=== PATIENT | male | born 1990 | race Caucasian/White ===

== ENCOUNTER 2017-08-19 12:25 | Inpatient (IN) | payer MEDICAID ==
[2017-08-19 12:29] VITALS: BMI 25.1
--- NOTE | 2017-08-19 13:02 | ED PDOC ---
HPI: Psych/Substance Abuse Time Seen by Provider: 08/19/17 12:29 Chief Complaint (Nursing): Psychiatric Evaluation Chief Complaint (Provider): Psychiatric evaluation History Per: Patient History/Exam Limitations: no limitations Onset/Duration Of Symptoms: Persistent Current Symptoms Are (Timing): Still Present Modifying Factor(s): Alcohol, Cocaine Associated Symptoms: Anxiety, Depression. denies: Suicidal Thoughts, Suicidal Plan Additional History Per: Patient Additional Complaint(s): 26yo male with no medical history, brought to ER by EMS for evaluation of feeling anxious, depressed and states he is "losing my mind." Patient states he has always felt this way and brittni with his symptoms on his own; he reports he has not gotten a formal diagnosis of mental illness. He also states 1 month ago , his girlfriend at that time had an without his knowledge; since then he has been unable to deal with his feelings. Patient denies any suicidal or homicidal ideation but the patient states he has been reckless with his behavior because he does not care what happens to him. He denies any visual or auditory hallucinations as well and denies any current suicidal plan. Patient does admit to cocaine and alcohol use today. He also reports a global headache, rated as 8/10 and is associated with photophobia. He denies any nausea, vomiting , abdominal pain, chest pain, shortness of breath, cough, weakness or numbness. He has no other medical complaints. PMD: None Past Medical History Reviewed: Historical Data, Nursing Documentation, Vital Signs Vital Signs: Last Vital Signs Temp 98.4 F 08/19/17 12:45 Pulse 113 H 08/19/17 12:45 Resp 18 08/19/17 12:45 BP 152/89 H 08/19/17 12:45 Pulse Ox 100 08/19/17 12:45 - Medical History PMH: No Chronic Diseases - Surgical History Other surgeries: right hand fracture repair - Family History Family History: States: Other Other Family History: Schizophrenia, bipolar disorder - Social History Current smoker - smoking cessation education provided: Yes (patient not willing to quantify amount of cigarettes) Alcohol: Occasional Drugs: Cocaine - Home Medications Home Medications: Ambulatory Orders Medication Instructions Recorded No Known Home Med 08/19/17 - Allergies Allergies/Adverse Reactions: Allergies Allergy/AdvReac Type Severity Reaction Status Date / Time No Known Allergies Allergy Verified 08/19/17 12:32 Review of Systems ROS Statement: Except As Marked, All Systems Reviewed And Found Negative Cardiovascular: Negative for: Chest Pain Respiratory: Negative for: Cough, Shortness of Breath Gastrointestinal: Negative for: Nausea, Vomiting, Abdominal Pain Neurological: Positive for: Headache. Negative for: Weakness, Numbness Psych: Positive for: Anxiety, Depression. Negative for: Suicidal ideation Physical Exam - Reviewed Nursing Documentation Reviewed: Yes Vital Signs Reviewed: Yes - Physical Exam Comments: GENERAL APPEARANCE: Patient is awake, alert, oriented x 3, in no acute distress. Cooperative. SKIN: Warm, dry; (-) cyanosis. HEAD: (-) swelling and tenderness, with no palpable bony defect. EYES: (-) conjunctival pallor, (-) scleral icterus, (-) nystagmus. ENMT: Mucous membranes moist. Pharynx clear. Airway patent: (-) stridor. Full ROM of mandible without pain. NECK: Supple, FROM (-)tenderness, (-) vertebral tenderness CHEST AND RESPIRATORY: (-) rales, (-) rhonchi, (-) wheezes; breath sounds equal bilaterally. HEART AND CARDIOVASCULAR: (-) irregularity; (-) murmur, (-) gallop. ABDOMEN AND GI: Soft; (-) tenderness (-) guarding (-) distention. BACK: (-) tenderness. EXTREMITIES: (-) deformity NEURO AND PSYCH: Mental status as above. hse specialist: Pupils equal & reactive . EOMI. (- ) facial asymmetry. Tongue and uvula midline. Strength 5/5 in all extremities. No gross sensory deficits. Affect: flat. - Laboratory Results Result Diagrams: 08/19/17 16:05 08/19/17 16:05 - ECG ECG: Positive for: Interpreted By Me, Viewed By Me ECG Rhythm: Positive for: Sinus Tachycardia. Negative for: ST/T Changes Interpretation Of ECG: QTC 438 Rate: 106 O2 Sat by Pulse Oximetry: 100 (RA) Pulse Ox Interpretation: Normal Medical Decision Making Medical Decision Making: Impression: Psychiatric evaluation, concern for depression Plan: -- EKG -- Tylenol 650mg PO -- UDS -- Alcohol serum -- Crisis evaluation -- 1:1 observation Time: 1500 Upon re-evaluation, patient states he still has a headache. Motrin 600mg PO ordered. Patient also requesting food tray at this time. Patient also reports he has been recreationally taking Percocet for the last 4- 6 weeks. Repeat HR is 96. Time: 1518 Accucheck level is 90. Utox reviewed. Patient seen and evaluated by crisis team, and per Dr. Eden patient to be admitted for depression. CBC, CMP and Urinalysis ordered. Time: 1635 Labs reviewed. Repeat HR: 88 Repeat BP: 134/86 On exam, patient remains AAOx3, in no acute distress. Headache improved. Patient continues to deny chest pain or SOB. On exam, neck is supple, lungs CTA , cardiac RRR, abdomen is soft and non-tender, neuro exam shows no focal findings. Patient medically cleared for psychiatric admission. Arrangements made for admission. Scribe Attestation: Documented by Margo Curry acting as a scribe for BONNIE Ruvalcaba. Provider Attestation: All medical record entries made by the Scribe were at my direction and personally dictated by me. I have reviewed the chart and agree that the record accurately reflects my personal performance of the history, physical exam, medical decision making, and the department course for this patient. I have also personally directed, reviewed, and agree with the discharge instructions and disposition. Disposition - Clinical Impression Clinical Impression: Depression - Patient ED Disposition Is Patient to be Admitted: Yes Counseled Patient/Family Regarding: Diagnosis - Disposition Disposition Time: 16:44 Condition: FAIR - Pt Status Changed To: Hospital Disposition Of: Inpatient - Admit Certification Admit to Inpatient:: After my assessment, the patient will require hospitalization for at least two midnights. This is because of the severity of symptoms shown, intensity of services needed, and/or the medical risk in this patient being treated as an outpatient. Results - Lab Results Lab Results: 08/19/17 08/19/17 08/19/17 16:05 16:05 14:45 WBC 9.6 RBC 5.62 Hgb 14.2 Hct 44.9 MCV 79.9 L MCH 25.3 L MCHC 31.7 L RDW 14.3 Plt Count 222 MPV 9.4 Neut % (Auto) 80.9 H Lymph % (Auto) 12.7 L [place] % (Auto) 6.1 Eos % (Auto) 0.0 Baso % (Auto) 0.3 Neut # (Auto) 7.7 H Lymph # (Auto) 1.2 [place] # (Auto) 0.6 Eos # (Auto) 0.0 Baso # (Auto) 0.0 Sodium 140 Potassium 3.8 Chloride 100 Carbon Dioxide 26 Anion Gap 18 BUN 6 L Creatinine 0.6 L Est GFR ( Amer) > 60 Est GFR (Non-Af Amer) > 60 POC Glucose (mg/dL) Random Glucose 89 Calcium 9.5 Total Bilirubin 0.5 AST 34 ALT 39 Alkaline Phosphatase 67 Total Protein 7.4 Albumin 4.2 Globulin 3.2 Albumin/Globulin Ratio 1.3 Urine Opiates Screen Positive H Urine Methadone Screen Negative Ur Barbiturates Screen Negative Ur Phencyclidine Scrn Negative Ur Amphetamines Screen Negative U Benzodiazepines Scrn Negative U Oth Cocaine Metabols Positive H U Cannabinoids Screen Positive H Alcohol, Quantitative 08/19/17 08/19/17 14:36 13:20 WBC RBC Hgb Hct MCV MCH MCHC RDW Plt Count MPV Neut % (Auto) Lymph % (Auto) [place] % (Auto) Eos % (Auto) Baso % (Auto) Neut # (Auto) Lymph # (Auto) [place] # (Auto) Eos # (Auto) Baso # (Auto) Sodium Potassium Chloride Carbon Dioxide Anion Gap BUN Creatinine Est GFR ( Amer) Est GFR (Non-Af Amer) POC Glucose (mg/dL) 90 Random Glucose Calcium Total Bilirubin AST ALT Alkaline Phosphatase Total Protein Albumin Globulin Albumin/Globulin Ratio Urine Opiates Screen Urine Methadone Screen Ur Barbiturates Screen Ur Phencyclidine Scrn Ur Amphetamines Screen U Benzodiazepines Scrn U Oth Cocaine Metabols U Cannabinoids Screen Alcohol, Quantitative 54 H
[2017-08-19 15:17] LABS: BARBITURATES, UR NEGATIVE (NEGATIVE)
[2017-08-19 15:24] LABS: BENZODIAZEPINES, UR NEGATIVE (NEGATIVE); OPIATES, UR POSITIVE (NEGATIVE); PHENCYCLIDINE, UR NEGATIVE (NEGATIVE)
[2017-08-19 16:17] LABS: BASO % 0.3 % (0.0-2.0); HEMOGLOBIN 14.2 g/dL (12.0-18.0); LYMPH # 1.2 K/uL (1.0-4.3); LYMPH % 12.7 % (20.0-40.0); MEAN CELL VOLUME 79.9 fl (80.0-94.0); MEAN CORPUSCULAR HEMOGLOBIN 25.3 pg (27.0-31.0); MEAN CORPUSCULAR HGB CONC 31.7 g/dL (33.0-37.0); MEAN PLATELET VOLUME 9.4 fl (7.2-11.7); MONO # 0.6 K/uL (0.0-0.8); MONO % 6.1 % (0.0-10.0); NEUT # 7.7 K/uL (1.8-7.0); NEUT % 80.9 % (50.0-75.0); RBC 5.62 Mil/uL (4.40-5.90); RED CELL DISTRIBUTION WIDTH 14.3 % (11.5-14.5); WHITE BLOOD COUNT 9.6 K/uL (4.8-10.8)
[2017-08-19 16:25] LABS: ALB/GLOB RATIO 1.3 (1.0-2.1); ALBUMIN 4.2 g/dL (3.5-5.0); ALT/SGPT 39 U/L (21-72); AST/SGOT 34 U/L (17-59); BLOOD UREA NITROGEN 6 mg/dl (9-20); CALCIUM 9.5 mg/dL (8.4-10.2); GFR AFRICAN-AMERICAN > 60; GFR NON-AFRICAN AMERICAN > 60
[2017-08-19 16:33] LABS: URINE BACTERIA RARE (<OCC); URINE BILIRUBIN NEGATIVE (NEGATIVE); URINE BLOOD NEGATIVE (NEGATIVE); URINE CLARITY CLOUDY (Clear); URINE COLOR YELLOW (YELLOW); URINE GLUCOSE (UA) NEG (Normal); URINE LEUKOCYTE ESTERASE NEG Leu/uL (Negative); URINE PROTEIN 30 mg/dL (NEGATIVE); URINE UROBILINOGEN 0.2-1.0 mg/dL (0.2-1.0)
[2017-08-19] MEDS ORDERED: DiphenhydrAMINE 50 mg/ml Inj IM PRN (20:58)
[2017-08-19] MEDS ORDERED: Alum-Mag Hydrox-Simethicone Susp (30 mL) PO PRN (20:58)
[2017-08-19] MEDS ORDERED: Magnesium Hydroxide Susp 30 ml UD PO PRN (20:58)
--- NOTE | 2017-08-19 21:42 | PCM.BM ---
<Gumaro Gimenez P - Last Filed: 08/19/17 21:41> Treatment Plan Problems - Problems identified on initial assessmt Hopelessness/Helplessness Date Initiated: 08/19/17 Time Initiated: 21:42 Assessment reference: NA Status: Active Treatment assets and liabiliti Patient Assests: cooperative, ADL independent, physically healthy, negotiates basic needs, cognitively intact Patient Liabilities: financial problems, relationship conflicts, substance abuse - Milieu Protocol Maintain good personal hygiene: daily Encourage regular showers, daily Remind patient to perform daily oral care, daily Assist patient to perform ADL's Conduct patient checks and document Observation sheet: Q15 minutes Maintain personal safety: every shift Educate patient to report safety concerns to staff, every shift Monitor environment for contraband/sharps Medication safety: Monitor for expected outcome, potential side effects: every shift, Assess barriers to learning: every shift, Assess readiness for medication education: every shift <Juan R Seaman - Last Filed: 08/21/17 13:33> - Diagnosis (1) Depression Status: Acute Interventions: psychotherapy, pharmacotherapy 08/21/17 13:19
[2017-08-20] MEDS: Multivitamin With Minerals Tab PO SCH (08:36)
[2017-08-20 09:14] LABS: T4 6.5 ug/dl (5.5-11.0)
--- NOTE | 2017-08-20 12:22 | CARD ---
APPROVED REPORT EKG Measurement Heart [id number] <Conclusion> Sinus tachycardia Possible Left atrial enlargement Borderline ECG
--- NOTE | 2017-08-20 13:54 | PCM.PSYCH ---
Initial Psychiatric Evaluation - Initial Psychiatric Evaluation Type of Admission: Voluntary Legal Status: Capacity Chief Complaint (in patient's own words): I am depressed Patient's Reaction to Hospitalization: pt requested help History of Present Illness and Precipitating Events: pt with history of opiate , cocaine alcohol and cannabis use , denied hx of previous psychiatric treatment, reported feeling increasingly depressed for past month after his girlfriend had an , started using increasing amounts of opiates , alcohol and cocaine on day of evaluation experienced suicidal ideation, came to ER seeking help pt reported passive suicidal ideation without plan on unit, denied homicidal ideation , denied perceptual disturbances urine toxicology positive for cocaine cannabis and opiates Current Medications: Active Medications Generic Name Dose Route Start Last Admin Trade Name Freq PRN Reason Stop Dose Admin Acetaminophen 650 mg 08/19/17 20:58 Tylenol 325mg Tab PO Q4 PRN pain level 4-7 Al Hydrox/Mg Hydrox/Simethicone 30 ml 08/19/17 20:58 Maalox Plus 30 Ml PO Q4 PRN Dyspepsia Clonidine HCl 0.1 mg 08/20/17 01:00 08/20/17 08:34 Catapres PO 08/23/17 01:01 0.1 mg Q8 GAYATHRI Administration Diphenhydramine HCl 50 mg 08/19/17 20:58 Benadryl IM Q6 PRN Extrapyramidal S/S Unable PO Diphenhydramine HCl 50 mg 08/19/17 20:58 Benadryl PO Q6 PRN Extrapyramidal Symptoms Diphenhydramine HCl 50 mg 08/19/17 20:59 08/19/17 22:05 Benadryl PO 50 mg HS PRN Administration Sleep Haloperidol 5 mg 08/19/17 20:58 Haldol PO Q4 PRN Agitation Haloperidol Lactate 5 mg 08/19/17 20:58 Haldol IM Q4 PRN Agitation, Unable to Take PO Ibuprofen 600 mg 08/19/17 21:16 Motrin Tab PO 08/22/17 21:16 Q6 PRN Pain, severe (8-10) Loperamide HCl 2 mg 08/19/17 21:16 Imodium PO Q4 PRN After Loose Bowel Movement Lorazepam 2 mg 08/19/17 20:58 Ativan IM Q4 PRN Anxiety/Agitation,Unable PO Lorazepam 2 mg 08/19/17 20:58 08/20/17 08:34 Ativan PO 2 mg Q4 PRN Administration Anxiety/Agitation Magnesium Hydroxide 30 ml 08/19/17 20:58 Milk Of Magnesia PO HS PRN Constipation Multivitamins/Minerals 1 tab 08/20/17 09:00 08/20/17 08:36 Therapeutic-M Tab PO 1 tab DAILY GAYATHRI Administration Past Psychiatric History - Past Psychiatric History Explanation of prior treatment: no formal psychiatric treatment in the past History of Family Illness: family hx of depression and bipolar disorder Pertinent Medical Hx (Current Medical&Sleep Prob, Allergies): Allergies Allergy/AdvReac Type Severity Reaction Status Date / Time No Known Allergies Allergy Verified 08/19/17 12:32 No Known Home Med 08/19/17 Mental Status Examination - Personal Presentation Personal Presentation: Looks stated age - Affect Affect: Depressed - Motor Activity Motor Activity: Psychomotor Retardation - Reliability in Providing Information Reliability in Providing Information: Poor, due to altered mood - Speech Speech: Tangential - Mood Mood: Depressed, Anxious - Formal Thought Process Formal Thought Process: Circumstantial Additional comments: denied perceptual disturbances, non elicited - Obsessions/Compulsions Obsessions: No Compulsions: No - Cognitive Functions Orientation: Person Abstract Thinking: [place] Judgement: Imparied, as evidence by: Poor judgement, Imparied, as evidence by: Lack of insight into illness - Risk Risk: Withdrawal, Diminished functioning - Strength & Assets Inventory Strength & Assets Inventory: Family support - Limitations Additional comments: financial difficulties DSM 5 DX - DSM 5 DSM 5 Diagnosis: 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
[2017-08-21] MEDS: Multivitamin With Minerals Tab PO SCH (08:20)
[2017-08-21] MEDS ORDERED: Petrolatum UD PAK TOP PRN (12:48)
--- NOTE | 2017-08-21 13:45 | PCM.PYCHPN ---
Psychiatric Progress Note - Psychiatric Progress Note Patient seen today, length of contact: pt evaluated discussed with team chart reviewed Patient Chief Complaint: I could not handle loosing everything at the same time Problems Identified/Issues Discussed: pt evaluated with treatment team, reported feeling very anxious and depressed, stated that he had a lot of losses all at the same time , including his girlfriend and his unborn child, pt reported having poor social support which resulted in him self medicating with substance motivational therapy provided and discussed with patient the effect of substance use on his current mental status with increased depression and anxiety discussed starting neurontin and lexapro and the importance of follow up therapy on discharge pt denied any current suicidal or homicidal ideation denied perceptual disturbances Medical Problems: no formal psychiatric treatment in the past DSM 5 Symptoms Update: 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 alcohol use disorder opiate use disorder adjustment disorder with mixed anxiety and depression Medication Change: Yes (start neurontin and lexapro) Medical Record Reviewed: Yes Mental Status Examination - Cognitive Function Orientation: Person, Place, Situation Memory: Intact Attention: WNL Concentration: WNL Association: WNL Fund of Knowledge: WNL Decription of patient's judgement and insights: partial insight , poor judgment - Mood Mood: Depressed, Anxious - Affect Affect: Depressed - Speech Speech: Appropriate - Formal Thought Process Formal Thought Process: Circumstantial Psychotic Thoughts and Behaviors: pt denied perceptual disturbances , non elicited - Suicidal Ideation Suicidal Ideation: No - Homicidal Ideation Homicidal Ideation: No Goal/Treatment Plan - Goal/Treatment Plan Need for Continued Stay: Severe depression anxiety Progress Toward Problem(s) and Goals/Treatment Plan: clonidine 0.1mg q8 prn for opiate withdrawal symptoms , monitor for symtoms and signs of withdrawal lexapro 5mg daily, neurontin 100mg tid motivational therapy referral to therapy on discharge
[2017-08-22 00:24] VITALS: O2SAT 99
[2017-08-22] MEDS: Multivitamin With Minerals Tab PO SCH (08:31)
--- NOTE | 2017-08-22 10:00 | PCM.PYCHPN ---
Psychiatric Progress Note - Psychiatric Progress Note Patient seen today, length of contact: pt evaluated discussed with team chart reviewed Patient Chief Complaint: pt has been feeling anxious and nervous wanting to go home and minimises his substance abuse and depression and still has poor insight and judgement and need further stabilization. Medication Change: Yes (start neurontin and lexapro) Medical Record Reviewed: Yes Mental Status Examination - Cognitive Function Orientation: Person, Place, Situation Memory: Intact Attention: WNL Concentration: WNL Association: WNL Fund of Knowledge: WNL - Mood Mood: Depressed, Anxious - Affect Affect: Depressed - Speech Speech: Appropriate - Formal Thought Process Formal Thought Process: Circumstantial - Suicidal Ideation Suicidal Ideation: No - Homicidal Ideation Homicidal Ideation: No Goal/Treatment Plan - Goal/Treatment Plan Need for Continued Stay: Severe depression anxiety Progress Toward Problem(s) and Goals/Treatment Plan: will continue to stabilize depression with lexapro and increase to 10 mg daily . nae reevaluate tomorrow and pt agreed to stay till thursday.
[2017-08-22 18:16] VITALS: RESP 18; TEMP 96.8
[2017-08-22 23:16] VITALS: BP 130/85; PULSE 85
[2017-08-23] MEDS: Multivitamin With Minerals Tab PO SCH (09:01)
== END 2017-08-23 09:45 | disposition home or self-care (01) | DRG 895 ==
LOC: H.ER 12:25 → H.ERHOLD 16:44 → H.PSYCH 20:51
PROVIDERS: ADMIT Psychiatry & Neurology Psychiatry; ATTEND Psychiatry & Neurology Psychiatry
PROC: HZ57ZZZ Individual Psychotherapy for Substance Abuse Treatment, Motivational Enhancement (ICD-10-PCS; principal; 2017-08-19)
PROC: GZHZZZZ Group Psychotherapy (ICD-10-PCS; 2017-08-19)
DX: F14.94 Cocaine use, unspecified with cocaine-induced mood disorder (principal); R45.851 Suicidal ideations; Z72.89 Other problems related to lifestyle; F12.980 Cannabis use, unspecified with anxiety disorder; F11.90 Opioid use, unspecified, uncomplicated; F43.23 Adjustment disorder with mixed anxiety and depressed mood; F17.210 Nicotine dependence, cigarettes, uncomplicated; R51 Headache; Y90.2 Blood alcohol level of 40-59 mg/100 ml